=== PATIENT | male | born 1975 | race Two or more races ===

== ENCOUNTER 2023-05-01 20:27 | Emergency (ER) | payer OTHER ==
[~2023-05-01] VITALS: Ht 172.7 cm; Wt 90.0 kg
[2023-05-01 20:34] VITALS: TEMP 98.5
[2023-05-01 21:54] LABS: BASOPHILS % (AUTO) 0.3 % (0.0-2.0); EOSINOPHILS % (AUTO) 1.1 % (1.0-6.0); HEMATOCRIT 46.3 % (41-53); HEMOGLOBIN 15.6 g/dL (13.5-17.5); LYMPHOCYTES # (AUTO) 1.3 K/uL (1.0-4.8); LYMPHOCYTES % (AUTO) 7.4 % (22.0-44.0); MEAN CORPUSCULAR HEMOGLOBIN 30.7 pg (26.0-34.0); MEAN CORPUSCULAR HGB CONC 33.7 G/dL (31.0-37.0); MEAN CORPUSCULAR VOLUME 91 fL (80-100); MONOCYTES # (AUTO) 0.8 K/uL (0.1-1.0); MONOCYTES % (AUTO) 4.4 % (2.0-9.0); NEUTROPHILS # (AUTO) 14.8 K/uL (1.8-7.7); PLATELET COUNT (AUTO) 231 K/uL (150-450); RED BLOOD CELL COUNT(AUTO) 5.07 MIL/uL (4.50-5.90); RED CELL DISTRIBUTION WIDTH 13.3 % (11.5-14.5); WHITE BLOOD COUNT (AUTO) 17.1 K/uL (4.5-11.0)
[2023-05-01 21:58] LABS: NEUTROPHILS % (AUTO) 86.8 % (40.0-70.0)
[2023-05-01] MEDS ORDERED: SODIUM CHLORIDE 0.9% 1,000 ML IV ONE (22:00)
[2023-05-01 22:04] LABS: ANION GAP 8 mmol/L (8-16); CALCIUM, TOTAL 9.7 mg/dL (8.8-10.5); CARBON DIOXIDE 25 mmol/L (22-29); CHLORIDE 102 mmol/L (98-107); CREATININE 0.99 mg/dL (0.60-1.30); GLOMERULAR FILTR. RATE CALC > 60 mL/min (>60); GLUCOSE,RANDOM 116 mg/dL (70-110); POTASSIUM 3.6 mmol/L (3.5-5.1); SODIUM SERUM 135 mmol/L (136-145); UREA NITROGEN, BLOOD 16 mg/dL (7-18)
[2023-05-01 22:10] LABS: ALANINE AMINOTRANSFERASE 26 U/L (12-78); ALBUMIN 4.1 g/dL (3.4-5.0); ALKALINE PHOSPHATASE 113 U/L (46-116); ASPARTATE AMINOTRANSFERASE 11 U/L (15-37); BILIRUBIN,TOTAL 0.3 mg/dL (0.1-1.0); TOTAL PROTEIN, SERUM 8.3 g/dL (6.4-8.2)
[2023-05-01 22:27] LABS: TROPONIN I-HIGH SENSITIVITY Less Than 4 ng/L (<76)
[2023-05-01 23:11] LABS: TROPONIN I-HIGH SENSITIVITY 4 ng/L (<76)
[2023-05-01] MEDS ORDERED: IOHEXOL 350 MG/ML 100 ML VIAL ONE (23:23)
[2023-05-01] MEDS ORDERED: SODIUM CHLORIDE 0.9% 100 ML ONE (23:23)
[2023-05-02 00:59] VITALS: BP 137/83; PULSE 70; RESP 17
== END 2023-05-02 01:06 | disposition home or self-care (01) ==
LOC: EMS 20:28
DX: R42 Dizziness and giddiness (principal); B34.9 Viral infection, unspecified
CPT/HCPCS: 99285; 74177; 96360; 71045; 80053; 83735; 83880; 84484; 85025; 36415; 93005; Q9967; J7030; J7050